=== PATIENT | male | born 1950 | race American Indian/Alaskan Native ===

== ENCOUNTER 2017-05-27 11:36 | Outpatient (CLI) | payer MEDICARE ==
--- NOTE | 2017-05-27 15:41 | Cat Scan Report ---
FINAL REPORT EXAM: CT ABDOMEN PELVIS WO CON HISTORY: LLQ/RLQ ABDOMINAL PAIN/COLON DIVERTICULOSIS TECHNIQUE: Standard unenhanced CT of the abdomen and pelvis. Coronal and sagittal reconstruction was also performed. Exam is technically limited by patient breathing. Contrast: Oral contrast was given. PRIORS: None. FINDINGS: Numerous bilateral nonobstructing renal calculi are present. These measure up to 4-5 mm. No hydronephrosis or ureteral calculi are present bilaterally. In the upper pole of the left kidney, there is a hypodense rounded 1.4 cm area, likely a cyst (axial image 58). On the same image, there is a large rounded cortical calcification measuring 7 mm is in the upper pole left kidney. Within the abdomen, the liver, pancreas, gallbladder, and adrenal glands are unremarkable. Calcified punctate granuloma in the spleen is seen. No evidence for retroperitoneal or pelvic lymphadenopathy is seen. The bowel loops have normal caliber. No soft tissue mass, fluid collection, inflammatory change, or free air is seen within the abdomen or pelvis. The appendix is normal. Diverticuli are noted in the descending and sigmoid colon without active diverticulitis. Within the pelvis, the bladder is unremarkable. The prostate is normal. No evidence for mass or lymphadenopathy is seen in the pelvis. Small bilateral inguinal hernias are noted containing only fat. Images through the upper abdomen include the lung bases which are expanded and clear. Bony structures show anterior mild compression at L2. Moderate narrowing of L5-S1 is seen. Large spurs are present anteriorly throughout the lower thoracic spine. Bridging spurs are present along anterior aspect of both SI joints. IMPRESSION: 1. no acute intra-abdominal process noted. 2. Diverticulosis of the descending and sigmoid colon without active diverticulitis 3. Numerous bilateral nonobstructing renal calculi 4. Probable underlying renal cyst in the left upper pole kidney.
== END 2017-05-27 11:37 | disposition home or self-care (01) ==
LOC: CT 11:36
PROVIDERS: ATTEND Internal Medicine Gastroenterology
DX: K57.30 Diverticulosis of large intestine without perforation or abscess without bleeding (principal); K40.90 Unilateral inguinal hernia, without obstruction or gangrene, not specified as recurrent; N20.0 Calculus of kidney; N28.89 Other specified disorders of kidney and ureter; K30 Functional dyspepsia; M53.84 Other specified dorsopathies, thoracic region
CPT/HCPCS: 74176